=== PATIENT | female | born 1985 | race Caucasian/White ===

== ENCOUNTER → 2022-10-01 13:17 | Outpatient (CLI) | payer OTHER, SELFPAY ==
--- NOTE | ~2022-10-01 | XR_ITS ---
EXAMINATION: XR wrist LT min 3V DATE: 10/01/2022 13:46 INDICATION: Left wrist pain TECHNIQUE: Posteroanterior, ulnar deviation, oblique, and lateral views of the left wrist were obtain ed. COMPARISON: None available FINDINGS: No fracture, dislocation, or subluxation. The bones, soft tissues, and joint spaces are nor mal. No abnormal erosions or sclerosis are identified. IMPRESSION: 1. No acute osseous abnormality. Reviewed, dictated and finalized at location B. K HANDLER
--- NOTE | ~2022-10-01 | XR_ITS ---
EXAMINATION: XR tibia fibula LT 2V INDICATION: Left ford pain TECHNIQUE: Two views of the left tibia and fibula are obtained on four radiographs. COMPARISON: None available FINDINGS: No fracture, dislocation, or subluxation. The bones, soft tissues, and joint spaces are nor mal. No abnormal erosion or sclerosis are identified. IMPRESSION: 1. No acute osseous abnormality. Reviewed, dictated and finalized at location B. TIONAL PLACEMENT SPECIALIST
--- NOTE | ~2022-10-01 | XR_ITS ---
EXAMINATION: XR wrist RT min 3V DATE: 10/01/2022 13:46 INDICATION: Right wrist pain TECHNIQUE: Posteroanterior, ulnar deviation, oblique, and lateral views of the right wrist were obtai zoran. COMPARISON: None available FINDINGS: No fracture, dislocation, or subluxation. The bones, soft tissues, and joint spaces are nor mal. No abnormal erosion or sclerosis are identified. IMPRESSION: 1. No acute osseous abnormality. Reviewed, dictated and finalized at location B. TAKER
--- NOTE | ~2022-10-01 | XR_ITS ---
EXAMINATION: XR tibia fibula RT 2V INDICATION: Right ford pain TECHNIQUE: Two views of the right tibia and fibula are obtained on four radiographs. COMPARISON: None available FINDINGS: No fracture, dislocation, or subluxation. The bones, soft tissues, and joint spaces are nor mal. No abnormal erosion or sclerosis are identified. IMPRESSION: 1. No acute osseous abnormality. Reviewed, dictated and finalized at location B. URETOR EXPERT
== END ==
PROVIDERS: PCP Internal Medicine; Visit Provider Internal Medicine
DX: M25.539 Pain in unspecified wrist (principal)
CPT/HCPCS: 73110; 73590

== ENCOUNTER 2025-07-12 10:49 | Outpatient (CLI) | payer OTHER, SELFPAY ==
--- NOTE | ~2025-07-12 | MMUS_ITS ---
EXAMINATION: MM diagnostic terrence BI w pelon, US breast LT limited INDICATION: 39-year old female; Evaluation of left breast palpable lump. COMPARISON: Baseline. TECHNIQUE: Digital breast tomosynthesis CC and MLO views of the BILATERAL breast and True lateral and spot compression of the LEFT breast were obtained with computer-aided detection to assist in interpretation of the study. A radiopaque skin marker was placed over the area of LEFT breast palpable lump. FINDINGS: The breasts are heterogeneously dense, which may obscure small masses. A persistent superficial mass with partially obscured margins in the superior lateral at anterior third correlates to the radiopaque skin marker. There are no other suspicious masses, calcifications, architectural distortion or any other abnormality in either breast. LEFT BREAST ULTRASOUND FINDINGS: Targeted evaluation of the area of concern was completed. There is a 1.22 x 0.74 x 0.55 cm superficial parallel oriented circumscribed hypoechoic mass at 1:00 location 4 cm FN correlate to the Palpable area identified by the patient. IMPRESSION: Probable Benign LEFT breast mass. Short-term follow-up recommended. No mammographic evidence of malignancy within the right breast. RECOMMENDATION: 6 month follow-up diagnostic LEFT breast ultrasound due in December 2025 BI-RADS 3, PROBABLY BENIGN Reviewed, dictated and finalized at location B. IMPRESSION: Probable Benign LEFT breast mass. Short-term follow-up recommended. No mammographic evidence of malignancy within the right breast. RECOMMENDATION: 6 month follow-up diagnostic LEFT breast ultrasound due in December 2025 BI-RADS 3, PROBABLY BENIGN
--- OUTSIDE RECORDS SUMMARY | 2025-07-12 11:10 | XMS_ITS | Patient Health Record ---
Author Organization [facility] Address [address] [place] [address] Care Team Providers Care Biochemistry Specialist Name Role Phone Hayley Daniel MD Primary Care Provider UnavailTrisha Bender Unavailable [phone] Lisa Wilkerson Unavailable [phone] Allergies Allergen (clinical drug ingredient) Drug/Non Drug Allergy documented on EMR Reaction Allergy Type Onset Date Status Gluten Gluten Unknown Allergy 12/09/2023 Active Reason For Referral No Information Medications Medication SIG (Take, Route, Frequency, Duration) Notes Start Date End Date Status predniSONE 20 MG Tablet Oral 12/09/2023 Not-Taking VITAMIN D 2,000 UNIT CAPSULE [facility]* 12/09/2023 Active BLISOVI FE 1 mg-20 mcg (21)/75 mg (7) Tablet Oral [facility]* 12/09/2023 Active Immunizations Vaccine Route Administration Date Status Comme nts Pfizer Biontech Covid-19 Vac cine 2nd dose Unknown 11/15/2020 Administered Pfizer Biontech Covid-19 Vac cine 2nd dose Unknown 12/07/2020 Administered Pfizer Biontech Covid-19 Vac cine 2nd dose Unknown 09/09/2021 Administered Social History Tobacco Use: Social History Observation Description Date Details (start date - stop date) Never Smoker NA - NA Sex Assigned At : Social History Observation Description Sex Assigned At Female Social History Miscellaneous: Social Info Question Answer Notes Advance Care Planning Are you your own decision-maker Yes Do you have Power of Moth Proofer for Health or Medi estella? No Tobacco Use: Social Info Question Answer Notes Tobacco Control (Standard) Tobacco use: Nonsmoker Additional Details Category Social Info Options Details Migrated Social History Migrated Social History Alcohol Intake: None 12/09/2023,Tobacco Years: Never smoker 03/10/2022 Section Notes: Social History Substance Use Do you or have you ever smoked tobacco?: Never smoker How much tobacco do you smoke?: None Do you or have you ever used e-cigarettes or vape?: Never used electronic cigarettes What was the date of your most recent tobacco screening?: 12/09/2023 Has tobacco cessation counseling been provided?: No What is your level of alcohol consumption?: None How many years have you consumed alcohol?: 5 Do you use any illicit or recreational drugs?: No Which illicit or recreational drugs have you used?: None Have you used IV drugs?: No What is your level of caffeine consumption?: None Education and Occupation What is the highest grade or level of school you have completed or the highest degree you have received?: Bachelor's degree (e.g., BA, AB, BS) Are you currently employed?: Yes Who is your employer?: [employer] Marriage and Sexuality What is your relationship status?: Are you sexually active?: No Do you use protection during sex?: Always How many children do you have?: 0 Home and Environment Are there any guns present in your home?: No Lifestyle Do you feel stressed (tense, restless, nervous, or anxious, or unable to sleep at night)?: To some extent Advance Directive Do you have an advance directive?: No Do you have a medical power of insurance defense attorney?: No Social History Substance Use Do you or have you ever smoked tobacco?: Never smoker How much tobacco do you smoke?: None Do you or have you ever used e-cigarettes or vape?: Never used electronic cigarettes What was the date of your most recent tobacco screening?: 12/09/2023 Has tobacco cessation counseling been provided?: No What is your level of alcohol consumption?: None How many years have you consumed alcohol?: 5 Do you use any illicit or recreational drugs?: No Which illicit or recreational drugs have you used?: None Have you used IV drugs?: No What is your level of caffeine consumption?: None Education and Occupation What is the highest grade or level of school you have completed or the highest degree you have received?: Bachelor's degree (e.g., BA, AB, BS) Are you currently employed?: Yes Who is your employer?: [employer] Marriage and Sexuality What is your relationship status?: Are you sexually active?: No Do you use protection during sex?: Always How many children do you have?: 0 Home and Environment Are there any guns present in your home?: No Lifestyle Do you feel stressed (tense, restless, nervous, or anxious, or unable to sleep at night)?: To some extent Advance Directive Do you have an advance directive?: No Do you have a medical power of insurance defense attorney?: No Social History Substance Use Do you or have you ever smoked tobacco?: Never smoker How much tobacco do you smoke?: None Do you or have you ever used e-cigarettes or vape?: Never used electronic cigarettes What was the date of your most recent tobacco screening?: 12/09/2023 Has tobacco cessation counseling been provided?: No What is your level of alcohol consumption?: None How many years have you consumed alcohol?: 5 Do you use any illicit or recreational drugs?: No Which illicit or recreational drugs have you used?: None Have you used IV drugs?: No What is your level of caffeine consumption?: None Education and Occupation What is the highest grade or level of school you have completed or the highest degree you have received?: Bachelor's degree (e.g., BA, AB, BS) Are you currently employed?: Yes Who is your employer?: [employer] Marriage and Sexuality What is your relationship status?: Are you sexually active?: No Do you use protection during sex?: Always How many children do you have?: 0 Home and Environment Are there any guns present in your home?: No Lifestyle Do you feel stressed (tense, restless, nervous, or anxious, or unable to sleep at night)?: To some extent Advance Directive Do you have an advance directive?: No Do you have a medical power of insurance defense attorney?: No Problems Problem Type SNOMED Code ICD Code Onset Dates Problem Status W/U Status Risk Notes Problem Mild recurrent major depression (25914986) Major depressive disorder, recurrent, mild (F33.0) Active confirmed Problem Recurrent major depression (66042801) Major depressive disorder, recurrent, in remission, unspecified (F33.40) Active confirmed Problem Generalized anxiety disorder (43116362) Generalized anxiety disorder (F41.1) 4 Active confirmed Problem Posttraumatic stress disorder (03259690) Post-traumatic stress disorder, chronic (F43.12) Active confirmed Problem Primary insomnia (2600083) Primary insomnia (F51.01) 4 Active confirmed Encounters Encounter Location Date Provider Diagnosis [address] [address] 09/03/2024 Trisha Mendieta Post-traumatic stress disorder, chronic F43.12 ; Generalized anxiety disorder F41.1 ; Primary insomnia F51.01 and Major depressive disorder, recurrent, in remission, unspecified F33.[address] [address] 12/03/2024 Lisa Wilkerson [address] [address] 04/18/2025 Trisha Mendieta [address] [address] 03/21/2025 Trisha Mendieta Assessments Encounter Date Diagnosis (ICD Code) Assessment Notes Treatment Notes Treatment Clinical Notes Section Notes 09/03/2024 Generalized anxiety disorder (ICD-10 - F41.1) Assessment and Plan: 1. Depression and Anxiety: - weaned off sertraline, trazodone, prazosin, and mirtazapine for the past three months. - Reports improved sleep, mood stability, and manageable anxiety levels. - Currently attending weekly therapy sessions and utilizing meditative practices, mindset coaching, nutrition, and physical training. Plan: - Continue with current non-pharmacologic al interventions and monitor progress - Encourage patient to maintain open communication with the therapist and reach out if symptoms worsen 2. PTSD: - Patient reports no recent nightmares, panic attacks, or PTSD symptoms that could not be managed with the therapist's help. Plan: - Continue with weekly therapy sessions - Encourage the use of grounding techniques during high-stress situations - Monitor for any changes in symptoms Agrees to follow-up in 3 months to assess progress and overall well-being. Encourage patient to reach out if any concerns or worsening of symptoms occur in the meantime. 09/03/2024 Post-traumatic stress disorder, chronic (ICD-10 - F43.12) Assessment and Plan: 1. Depression and Anxiety: - weaned off sertraline, trazodone, prazosin, and mirtazapine for the past three months. - Reports improved sleep, mood stability, and manageable anxiety levels. - Currently attending weekly therapy sessions and utilizing meditative practices, mindset coaching, nutrition, and physical training. Plan: - Continue with current non-pharmacologic al interventions and monitor progress - Encourage patient to maintain open communication with the therapist and reach out if symptoms worsen 2. PTSD: - Patient reports no recent nightmares, panic attacks, or PTSD symptoms that could not be managed with the therapist's help. Plan: - Continue with weekly therapy sessions - Encourage the use of grounding techniques during high-stress situations - Monitor for any changes in symptoms Agrees to follow-up in 3 months to assess progress and overall well-being. Encourage patient to reach out if any concerns or worsening of symptoms occur in the meantime. 09/03/2024 Primary insomnia (ICD-10 - F51.01) Assessment and Plan: 1. Depression and Anxiety: - weaned off sertraline, trazodone, prazosin, and mirtazapine for the past three months. - Reports improved sleep, mood stability, and manageable anxiety levels. - Currently attending weekly therapy sessions and utilizing meditative practices, mindset coaching, nutrition, and physical training. Plan: - Continue with current non-pharmacologic al interventions and monitor progress - Encourage patient to maintain open communication with the therapist and reach out if symptoms worsen 2. PTSD: - Patient reports no recent nightmares, panic attacks, or PTSD symptoms that could not be managed with the therapist's help. Plan: - Continue with weekly therapy sessions - Encourage the use of grounding techniques during high-stress situations - Monitor for any changes in symptoms Agrees to follow-up in 3 months to assess progress and overall well-being. Encourage patient to reach out if any concerns or worsening of symptoms occur in the meantime. 09/03/2024 Major depressive disorder, recurrent, in remission, unspecified (ICD-10 - F33.40) Assessment and Plan: 1. Depression and Anxiety: - weaned off sertraline, trazodone, prazosin, and mirtazapine for the past three months. - Reports improved sleep, mood stability, and manageable anxiety levels. - Currently attending weekly therapy sessions and utilizing meditative practices, mindset coaching, nutrition, and physical training. Plan: - Continue with current non-pharmacologic al interventions and monitor progress - Encourage patient to maintain open communication with the therapist and reach out if symptoms worsen 2. PTSD: - Patient reports no recent nightmares, panic attacks, or PTSD symptoms that could not be managed with the therapist's help. Plan: - Continue with weekly therapy sessions - Encourage the use of grounding techniques during high-stress situations - Monitor for any changes in symptoms Agrees to follow-up in 3 months to assess progress and overall well-being. Encourage patient to reach out if any concerns or worsening of symptoms occur in the meantime. Plan Of Treatment No Information Insurance Providers Payer Name Payer Address Payer Phone Subscriber Number Group Number Insured Name Patient Relationship to Insured Coverage Start Date Coverage End Date [facility] [address] [place] [address] [id number] JUWAN LOJA Self - patient is the insured Medical (General) History Medical History History ICD Code Problems: Generalized anxiety disorder Mild recurrent major depression Posttraumatic stress disorder Primary insomnia Severe recurrent major depression , Surgical History Surgery Date(Month/Year) Any surgical history colon-adenoma remov ed 12/18/2010
--- OUTSIDE RECORDS SUMMARY | 2025-07-12 11:10 | XMS_ITS | Encounter Summary ---
Author Organization [facility] Address [address] [place] [address] Phone Care Team Providers Care Computer Help Desk Representative Name Role Phone Myra Roland MD Primary Care Provider No, Physician Primary Care Provider [phone] Hayley Daniel MD Primary Care Provider [phone] Mina Neville DPT Unavailable [phone] Encounter Details Date Type Department Care Team (Late st Contact Info) Description 09/11/2012 Orders Only [facility] Scanning, Provider Social History Tobacco Use Types Packs/Day Years Used Date Smoking Tobacco: Never Assessed Alcohol Use Standard Drinks/Week Comments No 0 (1 standard drink = 0.6 oz pur e alcohol) Comments Unknown Sex and Gender Information Value Date Recorded Sex Assigned at Not on file Legal 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 Gender Identity Not on file Sexual Orientation Not on file documented as of this encounter Plan of Treatment Not on file documented as of this encounter Procedures Procedure Name Priority Date/Time Associated Diagnosis Comments SCAN - LABS 09/11/2012 documented in this encounter Results * SCAN - LABS (09/11/2012) us Provider Scanning Final Result documented in this encounter Visit Diagnoses Not on filedocumented in this encounter Care Teams Computer Help Desk Representative Relationship Specialty Start Date End Date Myra Roland MD PCP - General 01/26/12 09/21/20 No, Physician PCP - General 09/22/20 12/17/20 Hayley Daniel MD PCP - General Internal Medicine 12/18/20 Mina Neville DPT [id number] [facility] [place] [address] [place] [id number] Physical Therapist Physical Therapy 02/06/21 09/28/21 documented as of this encounter
--- OUTSIDE RECORDS SUMMARY | 2025-07-12 11:10 | XMS_ITS | Clinical Summary ---
Author Organization [facility] Address [address] [place] [address] Care Team Providers Care Form Setter/Driver Name Role Phone Hayley Daniel MD Primary Care Provider [phone] Allergies Active Allergy Reactions Criticality Noted Date Comments Gluten Other (See comments) Low 10/31/2020 Celiac disease Tramadol Nausea only Low 03/11/2017 Muscle weekness Medications norethindrone-e .estradiol-iron (AUROVELA FE 1-20, 28, ORAL) Take by mouth Active mirtazapine (REMERON) 15 mg tablet Take 1 tablet (15 mg total) by mouth nightly 2 Active traZODone (DESYREL) 50 mg tablet Take 1 tablet (50 mg total) by mouth nightly Active prazosin (MINIPRESS) 2 mg capsule Take 1 capsule (2 mg total) by mouth nightly Active cholecalciferol (Vitamin D3) 1,000 unit capsule Take 1 capsule (1,000 Units total) by mouth daily Active sertraline (ZOLOFT) 100 mg tablet Take 1 tablet (100 mg total) by mouth daily Active clobetasoL (CLOBEX) 0.05 % shampoo Apply topically 4 Active Active Problems Problem Noted Date Diagnosed Date Dietary counseling 04/21/2021 Abdominal pain 12/24/2020 Overview (12/24/2020): Added automatically from request for surgery [id number] Tubular adenoma of colon 12/18/2020 Celiac disease 12/18/2020 Abdominal wall pain 12/18/2020 Rash and nonspecific skin eruption 10/31/2020 Psoriasis 02/02/2014 Overview (12/23/2016): Psoriasis Immunizations Immunization Administration Dates Next Due Pfizer SARS-CoV-2 Monovalent Vaccination (12+ Yrs) PURPLE 12/07/2020,11/15/2020 Surgical History Surgery Date Site/Laterality Comments SOFT TISSUE CYST EXCISION 09/19/1998 - 09/18/1999 Dr. Zavala ANAL FISSURECTOMY 09/19/2010 - 09/18/2011 Dr. Edwards Medical History Medical History Date Comments Celiac disease Psoriasis Colon polyp Depression Family History Medical History Relation Name Comments Asthma Brother Alcohol abuse Father Back Carinoma Maternal Grandmother Fibromyalgia Mother Glaucoma Mother Migraines Mother Pancreatic cancer Paternal Grandfather Coronary artery disease Paternal Grandmother Migraines Sister Relation Name Status Comments Brother Father Maternal Grandmother Mother Paternal Grandfather Paternal Grandmother (Age 40) Sister Social History Tobacco Use Types Packs/Day Years Used Date Smoking Tobacco: Never Smokeless Tobacco: Never Tobacco Cessation:Counseling Given: Not Answered Alcohol Use Standard Drinks/Week Comments Yes 0 (1 standard drink = 0.6 oz pur e alcohol) AUDIT-C Answer Date Recorded Q1: How often do you have a drink containing alc ohol? 2-4 times a month 02/01/2023 Average Number of Drinks Not on file 023 Frequency of Binge Drinking Not on file 01/17 Personal Safety Answer Date Recorded Have you ever been in or are you currently in a harmful physical or emotional relationship or is someone making you feel afraid or unsafe? 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 Gender Identity Not on file Sexual Orientation Not on file Obstetrics History Last Filed Vital Signs Vital Sign Reading Time Taken Comments Blood Pressure 116/65 01/05/2024 9:11 AM CDT Pulse 96 01/05/2024 9:11 AM CDT Temperature 36.7 C (98 F) 01/05/2024 9:11 AM CDT Respiratory Rate 18 02/01/2023 1:35 PM CDT Oxygen Saturation 100% 02/01/2023 1:35 PM CDT Inhaled Oxygen Concentration - - Weight 76.7 kg (169 lb) 01/05/2024 9:11 AM CDT Height 170.2 cm (5' 7) 01/05/2024 9:11 AM CDT Body Mass Index 26.47 01/05/2024 9:11 AM CDT Plan of Treatment Health Maintenance Due Date Last Done Comments Cervical Cancer Screening 1985 Depression Screening 1985 Hepatitis C Screening 1985 Varicella Vaccines (1 of 2 - 13+ 2-dose series) 1998 Hepatitis B Screening 2003 Regular Well Visit/Exam 18-64 2003 HPV Vaccines (1 - 3-dose SCD M series) 2012 Covid-19 Vaccine ( - 2024-2 6 season) 2025 09/09/2021, 12/07/2020, 11/15/2020 Influenza Vaccine (#1) 2025 DTaP/Tdap/Td Vaccine (2 - Td or Tdap) 03/08/2031 03/08/2021 Pneumococcal vaccine <65 Aged Out No longer eligible based on patient's age to complete this topic Insurance [facility] PLUS [facility] PLUS Advance Directives For more information, please contact: [phone] * Full Code (Latest Code Status on File) Date Activated Date Inactivated Comments 02/01/2023 10:41 AM 02/01/2023 5:46 PM * Full Code Date Activated Date Inactivated Comments 12/29/2020 10:15 AM 12/29/2020 4:56 PM Care Teams Form Setter/Driver Relationship Specialty Start Date End Date Hayley Daniel MD PCP - General Internal Medicine 12/18/20
--- OUTSIDE RECORDS SUMMARY | 2025-07-12 11:10 | XMS_ITS | Patient Health Record ---
Author Organization [facility] Address [address] [place] [address] Support Name Relationship Address Phone Brenda Sarmiento Guarantor Unknown [phone] Reason For Referral No Information Medications Medication SIG (Take, Route, Frequency, Duration) Notes Start Date End Date Status Clobetasol Propionate 0.05 % APPLY TO AFFECTED AREA BY TOPICAL ROUTE DAILY. External 09/17/2014 Active Problems Problem Type SNOMED Code ICD Code Onset Dates Problem Status W/U Status Risk Notes Problem Psoriasis (5321960) Psoriasis related disease NEC (696.8) Active confirmed Plan Of Treatment No Information Insurance Providers Payer Name Payer Address Payer Phone Subscriber Number Group Number Insured Name Patient Relationship to Insured Coverage Start Date Coverage End Date [facility] [employer] [address] [address] [place] [address] [id number] Brenda Sarmiento Self - patient is the insured 3
== END 2025-07-12 10:50 | disposition home or self-care (01) ==
LOC: ANHFOHIMG 10:51
PROVIDERS: Visit Provider Obstetrics & Gynecology
DX: N63.21 Unspecified lump in the left breast, upper outer quadrant (principal)
CPT/HCPCS: 76642; 77062; 77066; G0279